=== PATIENT | male | born 1950 | race Caucasian/White ===

== ENCOUNTER 2020-05-17 06:19 | Emergency (ER) | payer MEDICARE, OTHER, SELFPAY ==
--- NOTE | 2020-05-17 06:28 | DI.RAD.S_ITS ---
PROCEDURE: XR CHEST 1V INDICATIONS: Productive cough TECHNIQUE: One view of the chest was acquired. COMPARISON: None. FINDINGS: Surgical changes and devices: None. Lungs and pleura: Lungs are clear. No pleural effusions or pneumothorax. Mediastinum: Mediastinal contours appear normal. Heart size is normal. Bones and chest wall: No suspicious bony lesions. Overlying soft tissues appear unremarkable. IMPRESSION: No acute cardiopulmonary process demonstrated radiographically. Dictated by: Enzo Cook M.D. on 05/17/2020 at 8:26 Approved by: Enzo Cook M.D. on 05/17/2020 at 8:27
[2020-05-17 06:33] VITALS: BP 165/88; PULSE 100; RESP 20; TEMP 37.4; O2SAT 95
--- NOTE | 2020-05-17 06:54 | ED_ITS ---
HPI - Eye Problem <Ihsan Guerrier MD - Last Filed: 05/28/20 07:11> General Chief complaint: Eye Problems Stated complaint: eye problem/congestion in chest Time Seen by Provider: 05/17/20 06:27 Source: patient Mode of arrival: Ambulatory Limitations: no limitations History of Present Illness HPI Narrative: The patient developed irritated, red left eye 3 days ago, now he has a both eyes involved. He has left eye mattering and watery discharge from both eyes. He has used warm compresses to help clear the eyes. He has associated rhinorrhea. He has had a mild sore throat for 2 days. He has no loss of smell or taste sensations. He has a nonproductive cough. He has no history of asthma or allergies. He is a nonsmoker. His daughter require similar symptoms about 10 days ago, her symptoms are not resolved. The patient has had no obvious exposure to COVID-19. His daughter has tested for COVID-19 2 times and is negative. The patient has an IDDM, no other chronic illnesses. Related Data Allergies Allergy/AdvReac Type Severity Reaction Status Date / Time INGREDIENT: NO KNOWN - NO Allergy Unknown Uncoded 02/18/18 13:10 KNOWN DRUG ALLERGY Review of Systems <Ihsan Guerrier MD - Last Filed: 05/28/20 07:11> Review of Systems ROS Unobtainable: All systems reviewed & are unremarkable except as noted in HPI and below Constitutional Constitutional: Denies chills, Denies fever(s), Denies lethargy and Denies weakness Eyes Eyes: Reports as per HPI Comments: Bilateral eye irritation with watery discharge is noted HPI. ENT Ears, Nose, Mouth, and Throat: Denies neck pain, Reports sore throat and Denies throat swelling Cardiovascular Cardiovascular: Denies chest pain, Denies irregular heart rhythm, Denies lightheadedness, Denies dyspnea and Denies orthopnea Respiratory Respiratory: Denies cough, Denies dyspnea and Denies wheezing Gastrointestinal Gastrointestinal: Denies abdominal pain and Denies nausea Musculoskeletal Musculoskeletal: Denies back pain, Denies neck pain and Denies numbness Integumentary/Breasts Skin/Breast: Denies erythema, Denies rash and Denies wounds Neurologic Neurologic: Denies confusion, Denies numbness and Denies weakness Psychiatric Psychiatric: Denies anxiety and Denies confusion Allergic/Immunologic Allergic/Immunologic: Denies throat swelling and Denies wheezing Patient History <Ihsan Guerrier MD - Last Filed: 05/28/20 07:11> Medical History Type 2 diabetes mellitus (Acute) Social History Smoking Status: Never smoker Smoking Status: Never smoker Substance Use Type: does not use Exam <Ihsan Guerrier MD - Last Filed: 05/28/20 07:11> Initial Vital Signs Initial Vital Signs: Vital Signs Temperature 99.3 F 05/17/20 06:33 Pulse Rate 100 H 05/17/20 06:33 Respiratory Rate 20 05/17/20 06:33 Blood Pressure 165/88 H 05/17/20 06:33 Pulse Oximetry 95 05/17/20 06:33 Const General: cooperative and well developed Nutritional Appearance: well nourished [place] Head: normocephalic and atraumatic Ears: external ears normal Nose: external nose normal Face and sinus: normal facial exam and sinuses nontender Mouth: oral mucosae normal Throat: posterior oropharynx normal Eyes Other: Bilateral conjunctivitis with watery discharge. Eyelids are normal. Neck Neck: No anterior neck swelling and No lymphadenopathy Resp Effort & Inspection: normal respiratory effort, able to speak in complete sentences, no respiratory distress and no use of accessory muscles Auscultation: clear to auscultation bilaterally, no rales, no rhonchi and no wheezes Cardio Rate: regular rate Rhythm: regular rhythm Heart Sounds: S1 normal, S2 normal, no click, no gallops, no murmurs and no rubs Pulses: normal peripheral pulses GI Inspection: non-distended Palpation: soft, no hepatosplenomegaly and No tender Auscultation: normal bowel sounds Skin General: no rashes or lesions noted, No jaundice and No petechiae Neuro General: patient alert, patient oriented x3, gait normal and no focal motor deficits Speech: speech normal Extrem General: full ROM, no clubbing, cyanosis or edema, no pedal edema and no calf tenderness <Obey Roberts DO - Last Filed: 05/17/20 09:33> Initial Vital Signs Initial Vital Signs: Vital Signs Temperature 99.3 F 05/17/20 06:33 Pulse Rate 100 H 05/17/20 06:33 Respiratory Rate 20 05/17/20 06:33 Blood Pressure 165/88 H 05/17/20 06:33 Pulse Oximetry 95 05/17/20 06:33 Course <Ihsan Guerrier MD - Last Filed: 05/28/20 07:11> Course Course Narrative: The patient presents with a viral illness featuring bilateral conjunctivitis. His daughters had similar symptoms and has tested negative for COVID-19 2 times in the past 10 days. The patient does have some sentinel symptoms, COVID-19 testing will be done. In the meantime he has conjunctivitis, he has a mild sore throat, he has a cough but no hypoxia. Chest x-ray is reassuring the workup is initiated. Care will be transitioned to Dr. Roberts at change of shift. Orders Ordered: ED Orders 05/17/20 06:15 CBC Auto Diff [Complete Blood Count AUTO DIFF] Stat Comprehensive Metabolic Panel Stat Lactate (Lactic Acid) Stat Procalcitonin Stat 05/17/20 06:28 XR chest 1V Stat Vital Signs Vital signs: Vital Signs - 8 hr 05/17/20 06:33 05/17/20 07:59 05/17/20 08:00 Temperature 99.3 F Pulse Rate 100 H 80 82 Respiratory Rate 20 Blood Pressure 165/88 H Pulse Oximetry 95 95 89 L 05/17/20 08:20 05/17/20 08:23 05/17/20 08:35 Temperature Pulse Rate 82 Respiratory Rate Blood Pressure 147/82 H Pulse Oximetry 91 97 <Obey Roberts DO - Last Filed: 05/17/20 09:33> Course Course Narrative: COVID came back very soon after signout and patient was actua lly DC/d before I could see him. I was able to review records, but did not perform an exam. Orders Ordered: ED Orders 05/17/20 06:15 CBC Auto Diff [Complete Blood Count AUTO DIFF] Stat Comprehensive Metabolic Panel Stat Lactate (Lactic Acid) Stat Procalcitonin Stat 05/17/20 06:28 XR chest 1V Stat Vital Signs Vital signs: Vital Signs - 8 hr 05/17/20 06:33 05/17/20 07:59 05/17/20 08:00 Temperature 99.3 F Pulse Rate 100 H 80 82 Respiratory Rate 20 Blood Pressure 165/88 H Pulse Oximetry 95 95 89 L 05/17/20 08:20 05/17/20 08:23 05/17/20 08:35 Temperature Pulse Rate 82 Respiratory Rate Blood Pressure 147/82 H Pulse Oximetry 91 97 MDM - Eye Problem <Ihsan Guerrier MD - Last Filed: 05/28/20 07:11> Lab Data Result diagrams: 05/17/20 06:15 05/17/20 06:15 Labs: Lab Results 05/17/20 05/17/20 05/17/20 Range/Units 06:15 06:15 06:15 WBC 12.6 H (4.5-11.0) X10^3/uL RBC 5.12 (4.5-5.9) X10^6/uL Hgb 15.0 (13.5-17.5) g/dL Hct 44.7 (41-53) % MCV 87.3 (80-100) fL MCH 29.4 (26-34) PG MCHC 33.6 (30-36) % RDW 14.1 (11.6-14.8) % Plt Count 203 (150-400) X10^3/uL Neut % (Auto) 69.9 (50-75) % Lymph % (Auto) 15.5 L (25-40) % Brown % (Auto) 11.4 (3-14) % Eos % (Auto) 2.7 (2-4) % Baso % (Auto) 0.5 (0-2) % Neut # (Auto) 8800 H (9242-3554) /uL Lymph # (Auto) 2000 (1498-4862) /uL Brown # (Auto) 1400 H (0-900) /uL Eos # (Auto) 300 (0-450) /uL Baso # (Auto) 100 (0-100) /uL Sodium 138 (137-145) mmol/L Potassium 3.3 L (3.4-5.1) mmol/L Chloride 101 (98-107) mmol/L Carbon Dioxide 29 (22-32) mmol/L BUN 14 (9-20) mg/dL Creatinine 0.75 (0.66-1.25) mg/dL Estimated GFR > 60.0 (>60) mL/min BUN/Creatinine Ratio 18.7 (6-22) Glucose 157 H (80-110) mg/dL Lactate (0.7-2.1) mmol/L Calcium 9.6 (8.4-10.2) mg/dL Total Bilirubin 1.5 H (0.2-1.3) mg/dL AST 40 (17-59) IU/L ALT 37 (<50) IU/L Alkaline Phosphatase 78 (38-126) U/L Total Protein 7.3 (6.3-8.2) g/dL Albumin 4.1 (3.5-5.0) g/dL Globulin 3.2 (1.7-4.1) g/dL Albumin/Globulin Ratio 1.3 (1.0-2.8) Procalcitonin 0.07 (<0.5) ng/mL COVID-19 PCR (Negative) 05/17/20 05/17/20 Range/Units 06:15 06:27 WBC (4.5-11.0) X10^3/uL RBC (4.5-5.9) X10^6/uL Hgb (13.5-17.5) g/dL Hct (41-53) % MCV (80-100) fL MCH (26-34) PG MCHC (30-36) % RDW (11.6-14.8) % Plt Count (150-400) X10^3/uL Neut % (Auto) (50-75) % Lymph % (Auto) (25-40) % Brown % (Auto) (3-14) % Eos % (Auto) (2-4) % Baso % (Auto) (0-2) % Neut # (Auto) (0777-1069) /uL Lymph # (Auto) (2675-5338) /uL Brown # (Auto) (0-900) /uL Eos # (Auto) (0-450) /uL Baso # (Auto) (0-100) /uL Sodium (137-145) mmol/L Potassium (3.4-5.1) mmol/L Chloride (98-107) mmol/L Carbon Dioxide (22-32) mmol/L BUN (9-20) mg/dL Creatinine (0.66-1.25) mg/dL Estimated GFR (>60) mL/min BUN/Creatinine Ratio (6-22) Glucose (80-110) mg/dL Lactate 1.7 (0.7-2.1) mmol/L Calcium (8.4-10.2) mg/dL Total Bilirubin (0.2-1.3) mg/dL AST (17-59) IU/L ALT (<50) IU/L Alkaline Phosphatase (38-126) U/L Total Protein (6.3-8.2) g/dL Albumin (3.5-5.0) g/dL Globulin (1.7-4.1) g/dL Albumin/Globulin Ratio (1.0-2.8) Procalcitonin (<0.5) ng/mL COVID-19 PCR Negative (Negative) Imaging Data Chest x-ray: My Impression: No acute findings <Obey Roberts DO - Last Filed: 05/17/20 09:33> Lab Data Labs: Lab Results 05/17/20 05/17/20 05/17/20 Range/Units 06:15 06:15 06:15 WBC 12.6 H (4.5-11.0) X10^3/uL RBC 5.12 (4.5-5.9) X10^6/uL Hgb 15.0 (13.5-17.5) g/dL Hct 44.7 (41-53) % MCV 87.3 (80-100) fL MCH 29.4 (26-34) PG MCHC 33.6 (30-36) % RDW 14.1 (11.6-14.8) % Plt Count 203 (150-400) X10^3/uL Neut % (Auto) 69.9 (50-75) % Lymph % (Auto) 15.5 L (25-40) % Brown % (Auto) 11.4 (3-14) % Eos % (Auto) 2.7 (2-4) % Baso % (Auto) 0.5 (0-2) % Neut # (Auto) 8800 H (0830-7675) /uL Lymph # (Auto) 2000 (5385-1476) /uL Brown # (Auto) 1400 H (0-900) /uL Eos # (Auto) 300 (0-450) /uL Baso # (Auto) 100 (0-100) /uL Sodium 138 (137-145) mmol/L Potassium 3.3 L (3.4-5.1) mmol/L Chloride 101 (98-107) mmol/L Carbon Dioxide 29 (22-32) mmol/L BUN 14 (9-20) mg/dL Creatinine 0.75 (0.66-1.25) mg/dL Estimated GFR > 60.0 (>60) mL/min BUN/Creatinine Ratio 18.7 (6-22) Glucose 157 H (80-110) mg/dL Lactate (0.7-2.1) mmol/L Calcium 9.6 (8.4-10.2) mg/dL Total Bilirubin 1.5 H (0.2-1.3) mg/dL AST 40 (17-59) IU/L ALT 37 (<50) IU/L Alkaline Phosphatase 78 (38-126) U/L Total Protein 7.3 (6.3-8.2) g/dL Albumin 4.1 (3.5-5.0) g/dL Globulin 3.2 (1.7-4.1) g/dL Albumin/Globulin Ratio 1.3 (1.0-2.8) Procalcitonin 0.07 (<0.5) ng/mL COVID-19 PCR (Negative) 05/17/20 05/17/20 Range/Units 06:15 06:27 WBC (4.5-11.0) X10^3/uL RBC (4.5-5.9) X10^6/uL Hgb (13.5-17.5) g/dL Hct (41-53) % MCV (80-100) fL MCH (26-34) PG MCHC (30-36) % RDW (11.6-14.8) % Plt Count (150-400) X10^3/uL Neut % (Auto) (50-75) % Lymph % (Auto) (25-40) % Brown % (Auto) (3-14) % Eos % (Auto) (2-4) % Baso % (Auto) (0-2) % Neut # (Auto) (5232-5812) /uL Lymph # (Auto) (9642-8903) /uL Brown # (Auto) (0-900) /uL Eos # (Auto) (0-450) /uL Baso # (Auto) (0-100) /uL Sodium (137-145) mmol/L Potassium (3.4-5.1) mmol/L Chloride (98-107) mmol/L Carbon Dioxide (22-32) mmol/L BUN (9-20) mg/dL Creatinine (0.66-1.25) mg/dL Estimated GFR (>60) mL/min BUN/Creatinine Ratio (6-22) Glucose (80-110) mg/dL Lactate 1.7 (0.7-2.1) mmol/L Calcium (8.4-10.2) mg/dL Total Bilirubin (0.2-1.3) mg/dL AST (17-59) IU/L ALT (<50) IU/L Alkaline Phosphatase (38-126) U/L Total Protein (6.3-8.2) g/dL Albumin (3.5-5.0) g/dL Globulin (1.7-4.1) g/dL Albumin/Globulin Ratio (1.0-2.8) Procalcitonin (<0.5) ng/mL COVID-19 PCR Negative (Negative) Discharge Plan Departure Patient Disposition: Home Clinical Impression: Acute viral syndrome Acute viral conjunctivitis Qualifiers: Laterality: bilateral Qualified Code(s): B30.9 - Viral conjunctivitis, unspecified Discharge Date/Time: 05/17/20 08:29 Instructions: DI for Viral Upper Respiratory Infection -- Adult Activity Restrictions/Additional Instructions: *You have been diagnosed with [acute viral upper respiratory infection, COVID negative] *What to do: *Take medications as directed *Follow up with your primary care provider in 2-3 days, call for an appointment. Let them know you were seen in the Emergency Department and that we ask that you be seen in follow up *Return to ER if you should have any new, worsening or concerning symptoms
--- NOTE | 2020-05-17 06:59 | PC.NURSE ---
Pt states red irritated eyes with some drainage, cough with green phlegm for 2 days and mild sore throat. Denies fevers at home or SOB. No known Covid exposure. LS clear bi-laterally to auscultation. PT states daughter has had similar symptoms and has been tested for covid 2 times with 2 negative results.
[2020-05-17 07:01] LABS: Add Manual Diff / Slide Review NO; Basophils Absolute Auto 100 /uL (0-100); Basophils Percent Auto 0.5 % (0-2); Eosinophils Absolute Auto 300 /uL (0-450); Eosinophils Percent Auto 2.7 % (2-4); Hematocrit 44.7 % (41-53); Lymphocytes Absolute Auto 2000 /uL (1100-4500); Lymphocytes Percent Auto 15.5 % (25-40); Mean Corpuscular HGB Conc 33.6 % (30-36); Mean Corpuscular Hemoglobin 29.4 PG (26-34); Mean Corpuscular Volume 87.3 fL (80-100); Monocytes Absolute Auto 1400 /uL (0-900); Monocytes Percent Auto 11.4 % (3-14); Neutrophils Absolute Auto 8800 /uL (1500-7000); Neutrophils Percent Auto 69.9 % (50-75); Platelet Count 203 X10^3/uL (150-400); Red Blood Cell Count 5.12 X10^6/uL (4.5-5.9); Red Cell Distribution Width 14.1 % (11.6-14.8); White Blood Cell Count 12.6 X10^3/uL (4.5-11.0)
[2020-05-17 07:13] LABS: Alanine Aminotransferase 37 IU/L (<50); Albumin 4.1 g/dL (3.5-5.0); Albumin Globulin Ratio 1.3 (1.0-2.8); Alkaline Phosphatase 78 U/L (38-126); Aspartate Aminotransferase 40 IU/L (17-59); BUN Creatinine Ratio 18.7 (6-22); Bilirubin Total 1.5 mg/dL (0.2-1.3); Blood Urea Nitrogen 14 mg/dL (9-20); Calcium 9.6 mg/dL (8.4-10.2); Carbon Dioxide 29 mmol/L (22-32); Chloride 101 mmol/L (98-107); Estimated Glomerular Filt Rate > 60.0 mL/min (>60); Globulin 3.2 g/dL (1.7-4.1); Glucose 157 mg/dL (80-110); HEMOLYSIS < 15 (0-50); Potassium 3.3 mmol/L (3.4-5.1); Sodium 138 mmol/L (137-145); Total Protein 7.3 g/dL (6.3-8.2)
[2020-05-17 07:14] LABS: Lactate (Lactic Acid) 1.7 mmol/L (0.7-2.1)
[2020-05-17 07:30] LABS: Procalcitonin 0.07 ng/mL (<0.5)
[2020-05-17 07:44] LABS: COVID19 -Nasal RAPID Negative (Negative)
[2020-05-17 07:59] VITALS: PULSE 80; O2SAT 95
[2020-05-17 08:00] VITALS: PULSE 82; O2SAT 89
[2020-05-17 08:20] VITALS: BP 147/82
[2020-05-17 08:23] VITALS: PULSE 82; O2SAT 91
[2020-05-17 08:35] VITALS: O2SAT 97
== END 2020-05-17 08:29 | disposition home or self-care (01) ==
PROVIDERS: Emergency Medicine; Emergency Provider Emergency Medicine
DX: Z03.818 Encounter for observation for suspected exposure to other biological agents ruled out (principal); B34.9 Viral infection, unspecified; B30.9 Viral conjunctivitis, unspecified; J02.9 Acute pharyngitis, unspecified; R05 Cough
CPT/HCPCS: 71045; 80053; 83605; 84145; 85025; 87635; 99283; 99284

== ENCOUNTER → 2023-11-04 09:14 | Outpatient (CLI) | payer MEDICARE, OTHER, SELFPAY | PROVIDERS: Referring Provider Orthopaedic Surgery; Visit Provider Orthopaedic Surgery | DX: Z01.818 Encounter for other preprocedural examination (principal) | CPT/HCPCS: 93005 ==

== ENCOUNTER → 2025-06-09 08:38 | Outpatient (CLI) | payer OTHER, MEDICARE, SELFPAY ==
--- NOTE | 2025-06-09 08:40 | DI.US.S_ITS ---
PROCEDURE: US ABD AORTA ANEURYSM SCREEN INDICATIONS: AAA SCREENING TECHNIQUE: Real time scanning was performed of the aorta and iliac arteries, with image documentation. COMPARISON: None. FINDINGS: Aorta: Proximal aortic diameter measures 2.6 cm. Mid-aorta measures 1.7 cm. Distal aortic diameter is 1.7 cm. Iliac arteries: Right common iliac artery measures 1.1 cm. Left common iliac artery measures 1.1 cm. IMPRESSION: No aneurysm found, normal study. Dictated by: Tyshawn Vincent M.D. on 06/09/2025 at 9:36 Approved by: Tyshawn Vincent M.D. on 06/09/2025 at 9:36
== END ==
PROVIDERS: Referring Provider Physician Assistant; Visit Provider Physician Assistant
DX: Z01.89 Encounter for other specified special examinations (principal)
CPT/HCPCS: 76706